=== PATIENT | female | born 1955 | race Two or more races ===

== ENCOUNTER → 2016-09-30 | Outpatient (CLI) | payer MEDICARE, OTHER ==
[~2016-09-30] MED LIST: ATOR20TA15 PO; BENETAB PO; BENZ100 PO; CELE200C PO; CYCL5TAB PO; DICY20TA10 PO; FLUT50SP EACH NARE; GABA300C5 PO; GABA600T PO; LEVE500 PO; METF500T PO; MOBI15TA PO; MONT10TA4 PO; NAPR500 PO; RANI150C PO; TEMA15CA PO; TRIAM.1%T TOPICAL; [UNRECOGNIZED DRUG - OTHER]; [UNRECOGNIZED DRUG - OTHER]
[2016-09-30 16:04] LABS: HEMOGLOBIN A1a 0.9 %; HEMOGLOBIN A1b 1.1 %; HEMOGLOBIN P3 3.9 %
== END ==
LOC: CLAB 09:16
PROVIDERS: ATTEND Family Medicine
DX: R73.03 Prediabetes (principal)
CPT/HCPCS: 36415; 83036

== ENCOUNTER → 2017-01-19 | Outpatient (CLI) | payer MEDICARE, OTHER ==
[~2017-01-19] MED LIST changes: -BENZ100 PO; -CELE200C PO; -GABA300C5 PO; -METF500T PO; -NAPR500 PO; -TEMA15CA PO; -TRIAM.1%T TOPICAL
[2017-01-19 10:42] LABS: ANION GAP 7 MEQ/L (5-15); BICARBONATE 28.8 MEQ/L (21.0-32.0); BLOOD UREA NITROGEN 16 MG/DL (7-18); CHLORIDE 104 MEQ/L (98-107); GLOMERULAR FILTRATION RATE 70 ML/MIN (>89); GLUCOSE,FASTING 102 MG/DL (74-99); SODIUM (NA) 140 MEQ/L (136-145)
[2017-01-19 16:21] LABS: HEMOGLOBIN A1b 0.9 %; HEMOGLOBIN Ao 85.4 %; HEMOGLOBIN F 0.9 %; HEMOGLOBIN P3 5.2 %
== END ==
LOC: CLAB 09:52
PROVIDERS: ATTEND Family Medicine
DX: R73.03 Prediabetes (principal)
CPT/HCPCS: 36415; 80048; 83036

== ENCOUNTER → 2017-07-06 | Outpatient (CLI) | payer MEDICARE, OTHER ==
[~2017-07-06] MED LIST changes: +ALPR2TAB3 PO; -CYCL5TAB PO; +ZOSTINJ SQ
[2017-07-06 10:15] LABS: BICARBONATE 26.4 MEQ/L (21.0-32.0); CALCIUM 9.3 MG/DL (8.5-10.1); CREATININE 0.78 MG/DL (0.50-1.00)
[2017-07-06 10:26] LABS: CHOLESTEROL/ HDL RATIO 3.24 RATIO; HDL CHOLESTEROL 70.3 MG/DL (40.0-60.0)
== END ==
LOC: CLAB 09:25
PROVIDERS: ATTEND Family Medicine
DX: R73.03 Prediabetes (principal); R63.5 Abnormal weight gain; E66.9 Obesity, unspecified
CPT/HCPCS: 36415; 80048; 80061; 84443